=== PATIENT | female | born 1995 | race Caucasian/White ===

== ENCOUNTER 2016-12-10 21:58 | Emergency (ER) | payer BC, OTHER ==
[~2016-12-10] VITALS: Ht 175.3 cm; Wt 153.9 kg
[~2016-12-10 21:58] MED LIST: ADDERALL XR 3030 MG PO; EFFEXOR XR75 MG PO; NAPROXEN500 M2; TRAMADOL HCL50 MG; VICODIN,LORT1 TABLET PO
[2016-12-10 23:35] LABS: EOSINOPHIL COUNT 0.3 K/uL (0-0.3); HEMATOCRIT 32.8 % (36.0-46.0); IMMATURE GRANULOCYTE (%) 0.5 % (0.0-0.7); IMMATURE GRANULOCYTE COUNT 0.1 K/uL; INSTRUMENT ABS NEUTROPHIL CT 6.9 K/uL; LYMPHOCYTE COUNT 2.4 K/uL (1.0-2.8); MCH 23.4 PG (29.0-34.0); MCHC 30.5 G/DL (30.0-36.0); MCV 76.6 FL (83-99); MEAN PLAT.VOLUME 10.2 uM^3 (9.5-12.4); MONOCYTE (%) 7.2 % (3-12); MONOCYTE COUNT 0.8 K/uL (0-0.8); NEUTROPHIL (%) 66.4 % (45-76); NEUTROPHIL COUNT 6.9 K/uL (1.8-6.4); PLATELET COUNT 228 K/uL (156-360); RBC DIS.WIDTH-CV 15.8 % (11.8-14.6); RBC DIS.WIDTH-SD 43.4 % (39-53); RED BLOOD COUNT 4.28 M/uL (3.80-5.20); WHITE BLOOD COUNT 10.4 K/uL (4.1-10.2)
[2016-12-10 23:52] LABS: CHLORIDE 107 mEq/L (99-109); POTASSIUM 3.6 mEq/L (3.7-5.4); SODIUM 139 mEq/L (136-147)
[2016-12-10 23:54] LABS: GLUCOSE 100 mg/dL (70-99)
[2016-12-10 23:55] LABS: ANION GAP 9 MEQ/L (2-14)
[2016-12-10 23:58] LABS: GFR ESTIMATE (CALCULATED) > 59 mL/min/
[2016-12-10 23:59] LABS: TROP-I INTERPRETATION NEGATIVE; TROPONIN-I < 0.01 ng/mL (0.0-0.30); UREA NITROGEN (BUN) 12 mg/dL (9-23)
[2016-12-11 02:57] LABS: TROP-I INTERPRETATION NEGATIVE; TROPONIN-I < 0.01 ng/mL (0.0-0.30)
[2016-12-11] MEDS ORDERED: CARAFATE1 GM PO (02:59)
[2016-12-11 03:17] VITALS: BP 126/83
== END 2016-12-11 03:22 | disposition home or self-care (01) ==
LOC: EME 21:58
PROVIDERS: Emergency Medicine
DX: O26.892 Other specified pregnancy related conditions, second trimester (principal); R07.9 Chest pain, unspecified; Z3A.27 27 weeks gestation of pregnancy; Z88.0 Allergy status to penicillin
CPT/HCPCS: 71020; 80048; 83880; 84484; 85025; 85379; 93005; 99281; 99284

== ENCOUNTER 2016-12-14 13:10 | Emergency (ER) | payer BC, OTHER ==
[~2016-12-14] VITALS: Ht 175.3 cm; Wt 153.5 kg
[~2016-12-14 13:10] MED LIST changes: +CARAFATE1 GM PO
[2016-12-14] MEDS ORDERED: KEFLEX500 MG PO (16:19)
[2016-12-14] MEDS ORDERED: BACTROBAN OINTM22 GM TP (16:19)
[2016-12-14 16:30] VITALS: BP 138/87
== END 2016-12-14 16:30 | disposition home or self-care (01) ==
LOC: EME 13:10
PROC: 0H97XZZ Drainage of Abdomen Skin, External Approach (ICD-10-PCS; principal; 2016-12-14)
DX: O26.892 Other specified pregnancy related conditions, second trimester (principal); L02.211 Cutaneous abscess of abdominal wall; Z3A.27 27 weeks gestation of pregnancy; Z88.1 Allergy status to other antibiotic agents
CPT/HCPCS: 99281; 99283

== ENCOUNTER 2016-12-20 17:09 | Emergency (ER) | payer OTHER ==
[~2016-12-20] VITALS: Ht 175.3 cm; Wt 152.1 kg
[~2016-12-20 17:09] MED LIST changes: +BACTROBAN OINTM22 GM TP; +KEFLEX500 MG PO
[2016-12-20] MEDS ORDERED: BACTROBAN CREAM15 GM TP (18:34)
[2016-12-20 18:43] VITALS: BP 132/95
== END 2016-12-20 18:50 | disposition home or self-care (01) ==
LOC: EME 17:09
PROC: 0H9JXZZ Drainage of Left Upper Leg Skin, External Approach (ICD-10-PCS; principal; 2016-12-20)
DX: O99.89 Other specified diseases and conditions complicating pregnancy, childbirth and the puerperium (principal); L02.416 Cutaneous abscess of left lower limb; Z3A.28 28 weeks gestation of pregnancy
CPT/HCPCS: 99281; 99284

== ENCOUNTER 2016-12-29 17:39 | Outpatient (CLI) | payer BC, OTHER ==
[~2016-12-29] VITALS: Ht 175.3 cm; Wt 150.9 kg
[~2016-12-29 17:39] MED LIST changes: +BACTROBAN CREAM15 GM TP
[2016-12-29 17:55] VITALS: BP 129/86
[2016-12-29] MEDS ORDERED: FLAGYL500 MG PO (18:13)
[2016-12-29] MEDS ORDERED: PRENATAL TABLE1 EAC3 PO (18:14)
== END 2016-12-29 19:04 | disposition home or self-care (01) ==
LOC: LDRP-OP → 2WEST 17:40 → LDRP-OP 04-12 12:09
DX: O36.8130 Decreased fetal movements, third trimester, not applicable or unspecified (principal); Z3A.29 29 weeks gestation of pregnancy; O23.593 Infection of other part of genital tract in pregnancy, third trimester; O99.213 Obesity complicating pregnancy, third trimester; E66.01 Morbid (severe) obesity due to excess calories
CPT/HCPCS: 59025; G0378

== ENCOUNTER 2017-02-28 12:01 | Outpatient (CLI) | payer OTHER ==
[~2017-02-28 12:01] MED LIST changes: +FLAGYL500 MG PO; +PRENATAL TABLE1 EAC3 PO
[2017-02-28 12:16] VITALS: BP 130/80
[2017-02-28 12:37] VITALS: BP 125/75
[2017-02-28 12:57] VITALS: BP 122/69
[2017-02-28] MEDS ORDERED: VALTREX50 MG/ML PO (12:57)
[2017-02-28 13:06] LABS: HEMATOCRIT 34.2 % (36.0-46.0); MCH 23.9 PG (29.0-34.0); MCHC 31.6 G/DL (30.0-36.0); MCV 75.8 FL (83-99); MEAN PLAT.VOLUME 10.3 uM^3 (9.5-12.4); PLATELET COUNT 219 K/uL (156-360); RBC DIS.WIDTH-CV 17.9 % (11.8-14.6); RBC DIS.WIDTH-SD 48.1 % (39-53); RED BLOOD COUNT 4.51 M/uL (3.80-5.20); WHITE BLOOD COUNT 9.7 K/uL (4.1-10.2)
[2017-02-28 13:32] LABS: ALKALINE PHOSPHATASE 120 IU/L (3-129); ANION GAP 10 MEQ/L (2-14); CHLORIDE 105 MEQ/L (99-109); GFR ESTIMATE (CALCULATED) > 59 mL/min/; GLUCOSE 118 mg/dL (70-99); POTASSIUM 3.7 MEQ/L (3.7-5.4); SAMPLE HEMOLYSIS CHECK 0; SAMPLE ICTERIC CHECK 0; SAMPLE LIPEMIA CHECK 0; SODIUM 138 MEQ/L (136-147); TOTAL BILIRUBIN 0.4 MG/DL (0.0-1.0); UREA NITROGEN (BUN) 8 mg/dL (9-23)
[2017-02-28 14:41] VITALS: BP 133/79
[2017-02-28 14:56] LABS: UR CREATININE CONCENTRATION 101.7 MG/DL
[2017-02-28 17:31] LABS: METH RESISTANT S AUREUS PCR NEGATIVE (NEGATIVE)
[2017-02-28 17:33] LABS: PROBE CHECK PASS; SPECIMEN PROCESSING CONTROL PASS
== END 2017-02-28 15:40 | disposition home or self-care (01) ==
LOC: LDRP-OP 12:01 → 2WEST 12:02 → LDRP-OP 04-12 19:29
PROVIDERS: Obstetrics & Gynecology Obstetrics
DX: O26.893 Other specified pregnancy related conditions, third trimester (principal); R03.0 Elevated blood-pressure reading, without diagnosis of hypertension; Z3A.38 38 weeks gestation of pregnancy
CPT/HCPCS: 59025; 80053; 82570; 84156; 85027; 87641; G0378

== ENCOUNTER 2017-03-03 16:16 | Outpatient (CLI) | payer OTHER ==
[~2017-03-03] VITALS: Ht 175.3 cm; Wt 147.7 kg
[~2017-03-03 16:16] MED LIST changes: +VALTREX50 MG/ML PO
[2017-03-03 16:53] VITALS: BP 143/80
[2017-03-03 17:39] VITALS: BP 132/71
[2017-03-03 18:13] LABS: EOSINOPHIL COUNT 0.3 K/uL (0-0.3); HEMATOCRIT 35.2 % (36.0-46.0); IMMATURE GRANULOCYTE (%) 0.6 % (0.0-0.7); IMMATURE GRANULOCYTE COUNT 0.1 K/uL; INSTRUMENT ABS NEUTROPHIL CT 7.1 K/uL; MCH 23.4 PG (29.0-34.0); MCHC 30.7 G/DL (30.0-36.0); MCV 76.2 FL (83-99); MEAN PLAT.VOLUME 10.4 uM^3 (9.5-12.4); MONOCYTE COUNT 0.8 K/uL (0-0.8); NEUTROPHIL COUNT 7.1 K/uL (1.8-6.4); PLATELET COUNT 227 K/uL (156-360); RBC DIS.WIDTH-CV 18.1 % (11.8-14.6); RBC DIS.WIDTH-SD 48.7 % (39-53); RED BLOOD COUNT 4.62 M/uL (3.80-5.20); WHITE BLOOD COUNT 10.3 K/uL (4.1-10.2)
[2017-03-03 18:41] VITALS: BP 126/74
[2017-03-03] MEDS ORDERED: OMEPRAZOLE20 MG PO (21:19)
[2017-03-03 21:22] VITALS: BP 136/83
== END 2017-03-03 21:45 | disposition home or self-care (01) ==
LOC: LDRP-OP 16:16 → 2WEST 16:17 → LDRP-OP 04-12 15:47
PROVIDERS: Obstetrics & Gynecology Gynecology
DX: O99.613 Diseases of the digestive system complicating pregnancy, third trimester (principal); K21.9 Gastro-esophageal reflux disease without esophagitis; O98.513 Other viral diseases complicating pregnancy, third trimester; B00.9 Herpesviral infection, unspecified; Z86.19 Personal history of other infectious and parasitic diseases; Z86.14 Personal history of Methicillin resistant Staphylococcus aureus infection; O99.213 Obesity complicating pregnancy, third trimester; E66.9 Obesity, unspecified; Z68.43 Body mass index [BMI] 50.0-59.9, adult; Z3A.38 38 weeks gestation of pregnancy; Z88.0 Allergy status to penicillin
CPT/HCPCS: 59025; 85025; 93005; G0378

== ENCOUNTER 2017-03-09 08:03 | Inpatient (IN) | payer OTHER ==
[2017-03-09] VITALS (23 sets, daily range): BP systolic 109–143; BP diastolic 54–91
[~2017-03-09] VITALS: Ht 175.3 cm; Wt 165.5 kg
[~2017-03-09 08:03] MED LIST changes: +OMEPRAZOLE20 MG PO
[2017-03-09] MEDS ORDERED: NYAMYC60 GM TP (09:47)
[2017-03-09 09:59] LABS: BASOPHIL (%) 0.2 % (0-1); EOSINOPHIL (%) 2.9 % (0-5); EOSINOPHIL COUNT 0.3 K/uL (0-0.3); HEMATOCRIT 34.4 % (36.0-46.0); HEMOGLOBIN 10.6 G/DL (11.9-15.5); IMMATURE GRANULOCYTE (%) 0.5 % (0.0-0.7); LYMPHOCYTE (%) 21.8 % (15-42); LYMPHOCYTE COUNT 2.2 K/uL (1.0-2.8); MCH 23.5 PG (29.0-34.0); MCHC 30.8 G/DL (30.0-36.0); MCV 76.3 FL (83-99); MONOCYTE (%) 7.3 % (3-12); MONOCYTE COUNT 0.7 K/uL (0-0.8); NEUTROPHIL (%) 67.3 % (45-76); NEUTROPHIL COUNT 6.7 K/uL (1.8-6.4); RBC DIS.WIDTH-CV 18.3 % (11.8-14.6); RBC DIS.WIDTH-SD 49.3 % (39-53); RED BLOOD COUNT 4.51 M/uL (3.80-5.20)
[2017-03-09 10:15] LABS: ALBUMIN 3.1 G/DL (3.2-4.8); CHLORIDE 107 MEQ/L (99-109); POTASSIUM 3.9 MEQ/L (3.7-5.4); SODIUM 139 MEQ/L (136-147); TOTAL BILIRUBIN 0.3 MG/DL (0.0-1.0)
[2017-03-09 10:21] LABS: ALKALINE PHOSPHATASE 129 IU/L (3-129); ALT (GPT) 12 IU/L (3-49); AST (GOT) 16 IU/L (2-34); CREATININE 0.5 MG/DL (0.6-1.3); GFR ESTIMATE (CALCULATED) > 59 mL/min/; GLUCOSE 129 mg/dL (70-99); TOTAL PROTEIN 5.9 G/DL (6.4-8.3); UREA NITROGEN (BUN) 10 mg/dL (9-23)
[2017-03-09 10:23] LABS: UR CREATININE CONCENTRATION 121.6 MG/DL
[2017-03-09 10:24] LABS: PLAT.SUFFICIENCY ADEQUATE; PLATELET COUNT 222 K/uL (156-360)
[2017-03-10] VITALS (20 sets, daily range): BP systolic 107–146; BP diastolic 53–85
[2017-03-11 07:06] LABS: BASOPHIL (%) 0.1 % (0-1); EOSINOPHIL (%) 0.8 % (0-5); EOSINOPHIL COUNT 0.1 K/uL (0-0.3); HEMATOCRIT 27.5 % (36.0-46.0); IMMATURE GRANULOCYTE (%) 0.6 % (0.0-0.7); LYMPHOCYTE (%) 10.5 % (15-42); LYMPHOCYTE COUNT 1.1 K/uL (1.0-2.8); MCH 23.1 PG (29.0-34.0); MCHC 30.2 G/DL (30.0-36.0); MCV 76.4 FL (83-99); MONOCYTE (%) 10.1 % (3-12); NEUTROPHIL (%) 77.9 % (45-76); PLATELET COUNT 180 K/uL (156-360); RBC DIS.WIDTH-CV 18.2 % (11.8-14.6); RBC DIS.WIDTH-SD 50.4 % (39-53); WHITE BLOOD COUNT 10.3 K/uL (4.1-10.2)
[2017-03-11 07:07] LABS: HEMOGLOBIN 8.3 G/DL (11.9-15.5)
[2017-03-11 09:17] VITALS: BP 130/77
[2017-03-11 19:38] VITALS: BP 114/81
[2017-03-11 22:02] VITALS: BP 126/75
[2017-03-12 03:47] VITALS: BP 112/67
[2017-03-12] MEDS ORDERED: VENLAFAXINE HCL75 M3 PO (08:41)
[2017-03-12] MEDS ORDERED: BREAST PUMP MC (10:25)
== END 2017-03-12 14:25 | disposition home or self-care (01) | DRG 774 ==
LOC: LDRP-OP 08:03 → 2WEST 08:04 → LDRP-OP 09:11 → 2WEST 03-10 11:23 → LDRP-OP 04-12 22:09
PROVIDERS: Midwife; Nurse Practitioner
PROC: 00HU33Z Insertion of Infusion Device into Spinal Canal, Percutaneous Approach (ICD-10-PCS; principal; 2017-03-09)
PROC: 0U7C7ZZ Dilation of Cervix, Via Natural or Artificial Opening (ICD-10-PCS; principal; 2017-03-09)
PROC: 3E033VJ Introduction of Other Hormone into Peripheral Vein, Percutaneous Approach (ICD-10-PCS; principal; 2017-03-09)
PROC: 3E0R3BZ Introduction of Anesthetic Agent into Spinal Canal, Percutaneous Approach (ICD-10-PCS; principal; 2017-03-09)
PROC: 10907ZC Drainage of Amniotic Fluid, Therapeutic from Products of Conception, Via Natural or Artificial Opening (ICD-10-PCS; principal; 2017-03-09)
PROC: 10E0XZZ Delivery of Products of Conception, External Approach (ICD-10-PCS; 2017-03-10)
PROC: 0HQ9XZZ Repair Perineum Skin, External Approach (ICD-10-PCS; 2017-03-10)
DX: O70.0 First degree perineal laceration during delivery (principal); O13.4 Gestational [pregnancy-induced] hypertension without significant proteinuria, complicating childbirth; O75.89 Other specified complications of labor and delivery; O98.32 Other infections with a predominantly sexual mode of transmission complicating childbirth; A60.00 Herpesviral infection of urogenital system, unspecified; Z3A.39 39 weeks gestation of pregnancy; Z37.0 Single live birth; O99.283 Endocrine, nutritional and metabolic diseases complicating pregnancy, third trimester; E04.1 Nontoxic single thyroid nodule; O99.214 Obesity complicating childbirth; E66.01 Morbid (severe) obesity due to excess calories; Z68.43 Body mass index [BMI] 50.0-59.9, adult; O99.344 Other mental disorders complicating childbirth; F32.9 Major depressive disorder, single episode, unspecified; F41.9 Anxiety disorder, unspecified; F90.9 Attention-deficit hyperactivity disorder, unspecified type
CPT/HCPCS: 80053; 82570; 84156; 85025; 87641; 94640; 94640 76; 99202; C1755; G0378; J2405; J2795; J3010; J7120

== ENCOUNTER 2017-07-30 19:49 | Emergency (ER) | payer OTHER ==
[~2017-07-30] VITALS: Ht 172.7 cm; Wt 157.4 kg
[~2017-07-30 19:49] MED LIST changes: +BREAST PUMP MC; +NYAMYC60 GM TP; +VENLAFAXINE HCL75 M3 PO
[2017-07-30 20:34] LABS: HEMATOCRIT 38.3 % (36.0-46.0); HEMOGLOBIN 11.8 G/DL (11.9-15.5); MCH 21.4 PG (29.0-34.0); MCHC 30.8 G/DL (30.0-36.0); MCV 69.5 FL (83-99); PLATELET COUNT 361 K/uL (156-360); RBC DIS.WIDTH-CV 16.1 % (11.8-14.6); RBC DIS.WIDTH-SD 39.4 % (39-53); RED BLOOD COUNT 5.51 M/uL (3.80-5.20); WHITE BLOOD COUNT 10.3 K/uL (4.1-10.2)
[2017-07-30 20:38] LABS: CHLORIDE 106 mEq/L (99-109); SODIUM 139 mEq/L (136-147)
[2017-07-30 20:39] LABS: GLUCOSE 101 mg/dL (70-99)
[2017-07-30 20:43] LABS: CREATININE 0.8 mg/dL (0.6-1.3); GFR ESTIMATE (CALCULATED) > 59 mL/min/
[2017-07-30 20:44] LABS: UREA NITROGEN (BUN) 15 mg/dL (9-23)
[2017-07-30 22:26] LABS: D-DIMER ELISA < 150.00 ng/mLDDU (<230)
[2017-07-30] MEDS ORDERED: ATIVAN1 MG PO (23:07)
[2017-07-30 23:20] VITALS: BP 119/98
== END 2017-07-30 23:31 | disposition home or self-care (01) ==
LOC: EME 19:49
DX: F43.0 Acute stress reaction (principal); F41.9 Anxiety disorder, unspecified; G97.82 Other postprocedural complications and disorders of nervous system; R20.0 Anesthesia of skin; E89.0 Postprocedural hypothyroidism; R94.31 Abnormal electrocardiogram [ECG] [EKG]; Z88.0 Allergy status to penicillin
CPT/HCPCS: 70360; 71046; 80048; 85027; 85379; 93005; 99281; 99284

== ENCOUNTER 2017-08-31 21:25 | Emergency (ER) | payer OTHER ==
[~2017-08-31] VITALS: Ht 175.3 cm; Wt 152.6 kg
[~2017-08-31 21:25] MED LIST changes: +ATIVAN1 MG PO
[2017-08-31 22:39] LABS: HEMATOCRIT 36.8 % (36.0-46.0); HEMOGLOBIN 11.4 G/DL (11.9-15.5); MCH 21.7 PG (29.0-34.0); PLATELET COUNT 301 K/uL (156-360); RBC DIS.WIDTH-CV 16.6 % (11.8-14.6); RBC DIS.WIDTH-SD 41.1 % (39-53); RED BLOOD COUNT 5.26 M/uL (3.80-5.20)
[2017-08-31 22:43] LABS: CHLORIDE 103 mEq/L (99-109); POTASSIUM 3.9 mEq/L (3.7-5.4); SODIUM 138 mEq/L (136-147)
[2017-08-31 22:44] LABS: D-DIMER ELISA < 150.00 ng/mLDDU (<230)
[2017-08-31 22:45] LABS: GLUCOSE 102 mg/dL (70-99)
[2017-08-31 22:48] LABS: CREATININE 0.8 mg/dL (0.6-1.3); GFR ESTIMATE (CALCULATED) > 59 mL/min/
[2017-08-31 22:49] LABS: UREA NITROGEN (BUN) 8 mg/dL (9-23)
[2017-08-31 23:03] LABS: QUANTITATIVE HCG < 4.0 MIU/ML
[2017-08-31] MEDS ORDERED: ATIVAN1 MG PO (23:45)
[2017-08-31 23:55] VITALS: BP 107/69
== END 2017-08-31 23:58 | disposition home or self-care (01) ==
LOC: RME 21:25 → EME 21:25 → RME 23:58
PROVIDERS: Physician Assistant
DX: R07.89 Other chest pain (principal); R06.02 Shortness of breath; R51 Headache; R11.0 Nausea; R50.9 Fever, unspecified; M54.9 Dorsalgia, unspecified; R05 Cough; R00.0 Tachycardia, unspecified; D72.829 Elevated white blood cell count, unspecified
CPT/HCPCS: 71046; 80048; 81003; 84702; 85027; 85379; 93005; 99281; 99285; J1885